=== PATIENT | male | born 1945 | race African-American/Black ===

== ENCOUNTER 2017-08-21 13:32 | Emergency (ER) | payer MEDICARE ==
[~2017-08-21] VITALS: Ht 167.6 cm; Wt 67.1 kg
--- NOTE | 2017-08-21 14:29 | Emergency Room Report ---
History of Present Illness General Chief Complaint: Pain Source: Patient Present Illness HPI Patient presents with left inguinal pain Reports that over the past 2 weeks he has had discomfort in that region Patient reports that pain is worse with ambulating Sharp pain Denies any vomiting or diarrhea denies any dysuria or frequency Denies any rash Patient has specific areas in a long region the cost pain with touch Denies any testicular pain Denies any change with eating Pain is 4/10 sharp stays localized to the left inguinal area Allergies: Coded Allergies: No Known Allergies (Unverified , 08/21/17) Patient History Past Medical History: see triage record Pertinent Family History: none Reviewed Nursing Documentation: PMH: Agreed, PSxH: Agreed Nursing Documentation-PMH Hx Hypertension: Yes Hx Diabetes: Yes Review of Systems All Other Systems: negative except mentioned in HPI Physical Exam Vital Signs Date Time Temp Pulse Resp B/P (MAP) Pulse Ox O2 Delivery O2 Flow Rate FiO2 08/21/17 13:43 98.4 104 18 131/88 99 Room Air Sp02 EP Interpretation: reviewed, normal General Appearance: well appearing, no apparent distress Head: normocephalic, atraumatic Eyes: bilateral eye PERRL, bilateral eye EOMI ENT: normal pharynx Neck: full range of motion, supple Respiratory: chest non-tender, lungs clear Cardiovascular #1: regular rate, rhythm, no edema Gastrointestinal: other - Palpation along the left inguinal region reveals some discomfort on palpation no obvious herniation is palpated there were a few palpable circumferential lymph nodes, that were somewhat uncomfortable on touch , along the inguinal area otherwise abdominal exam is nontender, Musculoskeletal: normal inspection, back normal, other - Patient reports difficulty trying to flex the left hip, however patient was visualized standing from chair and bleeding to the room there was no obvious focal deficit Neurologic: alert, oriented x3, responsive Skin: normal color, no rash Lymphatic: other - as above Medical Decision Making Diagnostic Impression: Primary Impression: Inguinal pain Additional Impression: Muscle strain ER Course Patient's discomfort appears to be localized to the left inguinal region On further discussion he also reports pain with trying to flex the left hip CT imaging does show some abnormalities in that region including the psoas muscle Blood work otherwise normal patient on further questioning reports that he had done some physical activity over the past several days This area does require further attention reevaluation with primary physician with possible and likely referral to specialty for further consideration Patient otherwise does not show signs of septic joint or septic hip in a stable for close followup Labs Test 08/21/17 14:15 08/21/17 14:20 White Blood Count 7.5 K/UL (4.8-10.8) Red Blood Count 4.12 M/UL (4.70-6.10) Hemoglobin 12.8 G/DL (14.2-18.0) Hematocrit 38.4 % (42.0-52.0) Mean Corpuscular Volume 93 FL (80-99) Mean Corpuscular Hemoglobin 31.2 PG (27.0-31.0) Mean Corpuscular Hemoglobin Concent 33.4 G/DL (32.0-36.0) Red Cell Distribution Width 10.7 % (11.6-14.8) Platelet Count 284 K/UL (150-450) Mean Platelet Volume 7.4 FL (6.5-10.1) Neutrophils (%) (Auto) 70.3 % (45.0-75.0) Lymphocytes (%) (Auto) 22.0 % (20.0-45.0) Monocytes (%) (Auto) 4.8 % (1.0-10.0) Eosinophils (%) (Auto) 1.1 % (0.0-3.0) Basophils (%) (Auto) 1.9 % (0.0-2.0) Sodium Level 135 MMOL/L (136-145) Potassium Level 4.8 MMOL/L (3.5-5.1) Chloride Level 100 MMOL/L (98-107) Carbon Dioxide Level 26 MMOL/L (21-32) Anion Gap 9 mmol/L (5-15) Blood Urea Nitrogen 26 mg/dL (7-18) Creatinine 1.6 MG/DL (0.55-1.30) Estimat Glomerular Filtration Rate mL/min (>60) Glucose Level 350 MG/DL (74-106) Calcium Level 9.0 MG/DL (8.5-10.1) Urine Color Pale yellow Urine Appearance Clear Urine pH 5 (4.5-8.0) Urine Specific [place] 1.010 (1.005-1.035) Urine Protein 3+ (NEGATIVE) Urine Glucose (UA) 4+ (NEGATIVE) Urine Ketones Negative (NEGATIVE) Urine Occult Blood 1+ (NEGATIVE) Urine Nitrite Negative (NEGATIVE) Urine Bilirubin Negative (NEGATIVE) Urine Urobilinogen Normal MG/DL (0.0-1.0) Urine Leukocyte Esterase Negative (NEGATIVE) Urine RBC 2-4 /HPF (0 - 0) Urine WBC 0-2 /HPF (0 - 0) Urine Squamous Epithelial Cells Occasional /LPF Urine Bacteria Occasional /HPF (NONE) CT/MRI/US Diagnostic Results CT/MRI/US Diagnostic Results : Impression CT abdomen pelvisIMPRESSION: Abnormal appearance of the left iliopsoas muscle/tendon likely reflective of tendinosis or partial tear. Orthopedic referral recommended. Diverticulosis of the colon. No definite evidence of diverticulitis. Bilateral nonobstructive nephrolithiasis. Atherosclerotic vascular disease. Mild spondylosis. Last Vital Signs Date Time Temp Pulse Resp B/P (MAP) Pulse Ox O2 Delivery O2 Flow Rate FiO2 08/21/17 13:43 98.4 104 18 131/88 99 Room Air Status: improved Disposition: HOME, SELF-CARE Condition: Stable Scripts Acetaminophen (Tylenol) 325 Mg Tablet 650 MG ORAL Q6H Y for Prn Pain/Headache/Temp > 101, #20 TAB 0 Refills Prov: DAMIR DE DIOS D.O. 08/21/17 Additional Instructions: Patient is provided with the discharge instructions notified to follow up with primary doctor in the next 2-3 days otherwise return to the er with any worsening symptoms. Please note that this report is being documented using [employer] technology. This can lead to erroneous entry secondary to incorrect interpretation by the dictating instrument. DAMIR DE DIOS D.O. Aug 21, 2017 14:29
[2017-08-21 14:40] LABS: BASOPHILS % (AUTO) 1.9 % (0.0-2.0); EOSINOPHILS % (AUTO) 1.1 % (0.0-3.0); HEMATOCRIT 38.4 % (42.0-52.0); HEMOGLOBIN 12.8 G/DL (14.2-18.0); MEAN CORPUSCULAR VOLUME 93 FL (80-99); MONOCYTES % (AUTO) 4.8 % (1.0-10.0); NEUTROPHILS % (AUTO) 70.3 % (45.0-75.0); PLATELET COUNT 284 K/UL (150-450); RED BLOOD COUNT 4.12 M/UL (4.70-6.10); RED CELL DISTRIBUTION WIDTH 10.7 % (11.6-14.8); WHITE BLOOD COUNT 7.5 K/UL (4.8-10.8)
[2017-08-21 14:44] LABS: APPEARANCE,URINE CLEAR; BILIRUBIN, URINE NEGATIVE (NEGATIVE); COLOR,URINE PALE YELLOW; GLUCOSE, URINE (UA) 4+ (NEGATIVE); KETONES,URINE NEGATIVE (NEGATIVE); LEUKOCYTE ESTERASE ,URINE NEGATIVE (NEGATIVE); NITRITE,URINE NEGATIVE (NEGATIVE); PH,URINE 5 (4.5-8.0); PROTEIN,URINE 3+ (NEGATIVE); UROBILINOGEN,URINE NORMAL MG/DL (0.0-1.0)
[2017-08-21 14:54] LABS: ANION GAP 9 mmol/L (5-15); BLOOD UREA NITROGEN 26 mg/dL (7-18); CARBON DIOXIDE 26 MMOL/L (21-32); CHLORIDE 100 MMOL/L (98-107); CREATININE 1.6 MG/DL (0.55-1.30); POTASSIUM 4.8 MMOL/L (3.5-5.1); SODIUM 135 MMOL/L (136-145)
[2017-08-21] MEDS ORDERED: TYLENOL325 MG ORAL (15:47)
--- NOTE | 2017-08-21 15:54 | Diagnostic Imaging Report ---
Indication: Left groin and hip pain Technique: Continuous helical transaxial imaging of the abdomen and pelvis was obtained from the lung bases to the pubic symphysis. No intravenous contrast was administered. Coronal 2-D reformats were also obtained. Automatic Exposure Control was utilized. Total Dose length Product (DLP): 557.[address] Dose Index Volume (CTDIvol): 11.49, 0.15 mGy Comparison: none Findings: The distal portion of the left iliopsoas muscle and tendon at the level of the femoral head appears focally hypodense. This may be reflective of acute or chronic tendinosis or partial tear. Please correlate clinically. Orthopedic referral is recommended. There is no inguinal hernia identified. No adenopathy or free fluid seen. There is fairly extensive diverticulosis of the colon without definite evidence of diverticulitis. Multiple stones are present within the calyces of both kidneys. The largest single stone is in the lower pole calyx of the right kidney and measures 7 mm. There is no hydronephrosis. Urinary bladder is nondistended and unremarkable otherwise. The appendix is normal. No free fluid or free air identified. Gallbladder is contracted. Moderate arterial calcifications are present. There is narrowing of intervertebral discs and accompanying endplate osteophyte formation. Hypertrophied facet joints also demonstrated.. Lung bases are clear. IMPRESSION: Abnormal appearance of the left iliopsoas muscle/tendon likely reflective of tendinosis or partial tear. Orthopedic referral recommended. Diverticulosis of the colon. No definite evidence of diverticulitis. Bilateral nonobstructive nephrolithiasis. Atherosclerotic vascular disease. Mild spondylosis. Findings discussed with Dr. Veronica Rolon via telephone 3:40 PM, 08/21/[address] scanner at [facility] is accredited by the [employer] and the scans are performed using dose optimization techniques as appropriate to a performed exam including Automatic Exposure control.
[2017-08-21 16:11] VITALS: BP 131/88
== END 2017-08-21 16:13 | disposition home or self-care (01) ==
LOC: EMR 14:13
DX: S39.011A Strain of muscle, fascia and tendon of abdomen, initial encounter (principal); X58.XXXA Exposure to other specified factors, initial encounter; Y92.9 Unspecified place or not applicable; I10 Essential (primary) hypertension; E11.9 Type 2 diabetes mellitus without complications; K57.30 Diverticulosis of large intestine without perforation or abscess without bleeding; N20.0 Calculus of kidney; M47.819 Spondylosis without myelopathy or radiculopathy, site unspecified
CPT/HCPCS: 36415; 74176; 80048; 81003; 85025; 99284